=== PATIENT | male | born 1955 | race Caucasian/White ===

== ENCOUNTER 2019-07-09 03:14 | Inpatient (IN) | payer OTHER ==
[~2019-07-09] VITALS: Ht 167.6 cm; Wt 81.7 kg
[2019-07-09] MEDS ORDERED: FURO20 (03:41)
[2019-07-09] MEDS ORDERED: GABA300 (03:41)
[2019-07-09] MEDS ORDERED: Vitamin D2000 UNIT (03:42)
[2019-07-09] MEDS ORDERED: Pravachol40 MG (03:42)
[2019-07-09] MEDS ORDERED: ASPI81CH (03:42)
[2019-07-09] MEDS ORDERED: POTA10T (03:43)
[2019-07-09] MEDS ORDERED: AMLO5 (03:43)
[2019-07-09] MEDS ORDERED: INSDET100 (03:44)
[2019-07-09] MEDS ORDERED: Prinivil10 MG (03:44)
[2019-07-09] MEDS ORDERED: Novolin R100 UNIT/M (03:44)
[2019-07-09 04:10] LABS: BASOPHILS ABSOLUTE AUTO 0.09 K/mm3 (0.00-0.23); BASOPHILS PERCENT AUTO 1 % (0-2); EOSINOPHILS ABSOLUTE AUTO 0.38 K/mm3 (0.00-0.68); EOSINOPHILS PERCENT AUTO 3 % (0-6); Hematocrit 38.6 % (37.0-53.0); Hemoglobin 11.8 g/dL (13.5-17.5); IMMATURE GRAN ABSOLUTE AUTO 0.05 K/mm3 (0.00-0.10); IMMATURE GRAN PERCENT AUTO 0 % (0-1); LYMPHOCYTES ABSOLUTE AUTO 2.08 K/mm3 (0.84-5.20); LYMPHOCYTES PERCENT AUTO 17 % (21-46); MONOCYTES ABSOLUTE AUTO 1.07 K/mm3 (0.16-1.47); MONOCYTES PERCENT AUTO 9 % (4-13); Mean Corpuscular HGB Conc 30.6 g/dL (31.5-36.5); Mean Corpuscular Volume 101 fL (80-100); Mean Platelet Volume 10.4 fL (9.1-12.4); NEUTROPHILS ABSOLUTE AUTO 8.34 K/mm3 (1.96-9.15); NEUTROPHILS PERCENT AUTO 70 % (41-73); Platelet Count 336 K/mm3 (150-400); RDW Coefficient Variation 13.2 % (11.7-14.2); RDW Standard Deviation 49.9 fL (35.1-46.3); Red Blood Cell Count 3.81 M/mm3 (4.30-5.90); White Blood Cell Count 12.01 K/mm3 (4.00-11.30)
[2019-07-09 04:25] LABS: Alanine Aminotransfer (ALT/SGP 45 U/L (12-78); Albumin, Blood 2.7 g/dL (3.4-5.0); Albumin/Globulin Ratio 0.7 (0.8-1.8); Alk Phos 120 U/L (50-136); Anion Gap 5 mmol/L (6-16); Aspartate Aminotrans (AST/SGOT 46 U/L (12-37); Bilirubin, Total 0.2 mg/dL (0.1-1.0); Blood Urea Nitrogen 17 mg/dL (8-24); CO2, Blood 30 mmol/L (21-32); Calcium, Blood 8.3 mg/dL (8.5-10.1); Chloride, Blood 106 mmol/L (98-108); Creatinine, Blood 1.06 mg/dL (0.60-1.20); Globulin, Blood 3.7 g/dL (2.2-4.0); Glomerular Filtration Rate >60 (60-); Glucose, Blood 273 mg/dL (70-99); Potassium, Blood 4.6 mmol/L (3.5-5.5); Sodium, Blood 141 mmol/L (136-145); Total Protein, Blood 6.4 g/dL (6.4-8.2); Troponin I 0.066 ng/mL (0.000-0.040)
[2019-07-09 06:25] LABS: Percent Saturation 26.2 % (20.0-50.0)
== END 2019-07-09 08:53 | disposition left against medical advice (07) | DRG 189 ==
LOC: ER 03:14 → ERHOLD 05:51
PROVIDERS: Emergency Medicine; ADMIT Internal Medicine
DX: J96.01 Acute respiratory failure with hypoxia (principal); J44.1 Chronic obstructive pulmonary disease with (acute) exacerbation; I10 Essential (primary) hypertension; E11.9 Type 2 diabetes mellitus without complications; D64.9 Anemia, unspecified; Z66 Do not resuscitate; Z87.891 Personal history of nicotine dependence
CPT/HCPCS: 71046; 80053; 82607; 82728; 82746; 82947; 83036; 83540; 83550; 83880; 84443; 84484; 85025; 93005; 93010; 94640; 96374; 96375; 99285-25; J0456; J1650; J2920; J7050

== ENCOUNTER 2020-02-02 14:24 | Emergency (ER) | payer OTHER ==
[~2020-02-02] VITALS: Ht 167.6 cm; Wt 72.6 kg
[~2020-02-02 14:24] MED LIST: AMLO5; ASPI81CH; FURO20; GABA300; INSDET100; Novolin R100 UNIT/M; POTA10T; Pravachol40 MG; Prinivil10 MG; Vitamin D2000 UNIT
[2020-02-02 15:53] LABS: BASOPHILS PERCENT AUTO 1 % (0-2); EOSINOPHILS ABSOLUTE AUTO 0.22 K/mm3 (0.00-0.68); EOSINOPHILS PERCENT AUTO 3 % (0-6); Hematocrit 36.6 % (37.0-53.0); Hemoglobin 11.4 g/dL (13.5-17.5); IMMATURE GRAN ABSOLUTE AUTO 0.03 K/mm3 (0.00-0.10); IMMATURE GRAN PERCENT AUTO 0 % (0-1); LYMPHOCYTES ABSOLUTE AUTO 2.16 K/mm3 (0.84-5.20); LYMPHOCYTES PERCENT AUTO 25 % (21-46); MONOCYTES ABSOLUTE AUTO 0.67 K/mm3 (0.16-1.47); MONOCYTES PERCENT AUTO 8 % (4-13); Mean Corpuscular HGB 31.8 pg (26.0-34.0); Mean Corpuscular HGB Conc 31.1 g/dL (31.5-36.5); Mean Corpuscular Volume 102 fL (80-100); Mean Platelet Volume 9.9 fL (9.1-12.4); NEUTROPHILS ABSOLUTE AUTO 5.62 K/mm3 (1.96-9.15); NEUTROPHILS PERCENT AUTO 64 % (41-73); Platelet Count 373 K/mm3 (150-400); RDW Coefficient Variation 12.8 % (11.7-14.2); RDW Standard Deviation 47.9 fL (35.1-46.3); Red Blood Cell Count 3.59 M/mm3 (4.30-5.90)
[2020-02-02] MEDS ORDERED: METO25 PO (15:57)
[2020-02-02 16:10] LABS: Alanine Aminotransfer (ALT/SGP 35 U/L (12-78); Albumin, Blood 3.2 g/dL (3.4-5.0); Albumin/Globulin Ratio 0.8 (0.8-1.8); Alk Phos 122 U/L (50-136); Anion Gap 3 mmol/L (6-16); Aspartate Aminotrans (AST/SGOT 23 U/L (12-37); Bilirubin, Total 0.2 mg/dL (0.1-1.0); Blood Urea Nitrogen 23 mg/dL (8-24); Bun/Creatinine Ratio 18.4 (12.0-20.0); CO2, Blood 29 mmol/L (21-32); Calcium, Blood 8.6 mg/dL (8.5-10.1); Chloride, Blood 106 mmol/L (98-108); Creatinine, Blood 1.25 mg/dL (0.60-1.20); Globulin, Blood 3.8 g/dL (2.2-4.0); Glomerular Filtration Rate >60 (60-); Glucose, Blood 106 mg/dL (70-99); Potassium, Blood 4.7 mmol/L (3.5-5.5); Sodium, Blood 138 mmol/L (136-145)
== END 2020-02-02 17:18 | disposition home or self-care (01) ==
LOC: ER 14:24
PROVIDERS: Physician Assistant
DX: M84.411A Pathological fracture, right shoulder, initial encounter for fracture (principal); C79.51 Secondary malignant neoplasm of bone; I65.21 Occlusion and stenosis of right carotid artery; J44.9 Chronic obstructive pulmonary disease, unspecified; I10 Essential (primary) hypertension; E11.51 Type 2 diabetes mellitus with diabetic peripheral angiopathy without gangrene; I73.9 Peripheral vascular disease, unspecified; F17.210 Nicotine dependence, cigarettes, uncomplicated; Z79.4 Long term (current) use of insulin; Z79.899 Other long term (current) drug therapy
CPT/HCPCS: 36415; 70491; 76536; 80053; 85025; 93005; 93010; 99284-25; Q9967

== ENCOUNTER 2020-02-26 01:01 | Emergency (ER) | payer OTHER ==
[~2020-02-26] VITALS: Ht 167.6 cm; Wt 74.8 kg
[~2020-02-26 01:01] MED LIST changes: -AMLO5; +AMLO5 PO; -ASPI81CH; +ASPI81CH PO; -FURO20; +FURO20 PO; -GABA300; +GABA300 PO; +METO25 PO; -Pravachol40 MG; +Pravachol40 MG PO; -Prinivil10 MG; +Prinivil10 MG PO; -Vitamin D2000 UNIT; +Vitamin D2000 UNIT PO
[2020-02-26 01:23] LABS: BASOPHILS ABSOLUTE AUTO 0.07 K/mm3 (0.00-0.23); BASOPHILS PERCENT AUTO 1 % (0-2); EOSINOPHILS ABSOLUTE AUTO 0.28 K/mm3 (0.00-0.68); EOSINOPHILS PERCENT AUTO 3 % (0-6); Hematocrit 34.1 % (37.0-53.0); Hemoglobin 10.5 g/dL (13.5-17.5); IMMATURE GRAN ABSOLUTE AUTO 0.04 K/mm3 (0.00-0.10); IMMATURE GRAN PERCENT AUTO 0 % (0-1); LYMPHOCYTES ABSOLUTE AUTO 2.38 K/mm3 (0.84-5.20); LYMPHOCYTES PERCENT AUTO 21 % (21-46); MONOCYTES ABSOLUTE AUTO 0.78 K/mm3 (0.16-1.47); MONOCYTES PERCENT AUTO 7 % (4-13); Mean Corpuscular HGB 31.4 pg (26.0-34.0); Mean Corpuscular HGB Conc 30.8 g/dL (31.5-36.5); Mean Corpuscular Volume 102 fL (80-100); Mean Platelet Volume 9.8 fL (9.1-12.4); NEUTROPHILS ABSOLUTE AUTO 7.65 K/mm3 (1.96-9.15); NEUTROPHILS PERCENT AUTO 68 % (41-73); Platelet Count 310 K/mm3 (150-400); RDW Coefficient Variation 13.2 % (11.7-14.2); RDW Standard Deviation 49.7 fL (35.1-46.3); Red Blood Cell Count 3.34 M/mm3 (4.30-5.90)
[2020-02-26] MEDS ORDERED: Lopressor 25 mg25 MG PO (01:33)
[2020-02-26] MEDS ORDERED: MULTIVITAMINS1 EAC3 PO (01:33)
[2020-02-26 01:41] LABS: Alanine Aminotransfer (ALT/SGP 42 U/L (12-78); Albumin, Blood 2.9 g/dL (3.4-5.0); Albumin/Globulin Ratio 0.8 (0.8-1.8); Alk Phos 113 U/L (50-136); Anion Gap 6 mmol/L (6-16); Aspartate Aminotrans (AST/SGOT 42 U/L (12-37); Bilirubin, Total 0.2 mg/dL (0.1-1.0); Blood Urea Nitrogen 28 mg/dL (8-24); CO2, Blood 26 mmol/L (21-32); Calcium, Blood 8.2 mg/dL (8.5-10.1); Chloride, Blood 111 mmol/L (98-108); Creatinine, Blood 1.27 mg/dL (0.60-1.20); Globulin, Blood 3.5 g/dL (2.2-4.0); Glomerular Filtration Rate >60 (60-); Glucose, Blood 235 mg/dL (70-99); Potassium, Blood 4.1 mmol/L (3.5-5.5); Sodium, Blood 143 mmol/L (136-145); Total Protein, Blood 6.4 g/dL (6.4-8.2); Troponin I 0.024 ng/mL (0.000-0.040)
== END 2020-02-26 04:25 | disposition home or self-care (01) ==
LOC: ER 01:01
PROVIDERS: Emergency Medicine
DX: R06.02 Shortness of breath (principal); J44.9 Chronic obstructive pulmonary disease, unspecified; Z79.82 Long term (current) use of aspirin; Z79.899 Other long term (current) drug therapy; F17.200 Nicotine dependence, unspecified, uncomplicated
CPT/HCPCS: 71046; 80053; 83880; 84484; 85025; 93005; 93010; 96374; 99285-25; J1940

== ENCOUNTER 2020-02-26 12:56 | Day surgery (SDC) | payer OTHER ==
[~2020-02-26 12:56] MED LIST changes: +Lopressor 25 mg25 MG PO; +MULTIVITAMINS1 EAC3 PO
== END 2020-02-26 23:05 | disposition home or self-care (01) ==
LOC: CT 12:56
DX: C41.3 Malignant neoplasm of ribs, sternum and clavicle (principal)
CPT/HCPCS: 20225; 77012

== ENCOUNTER 2020-03-02 04:34 | Inpatient (IN) | payer OTHER ==
[~2020-03-02] VITALS: Ht 167.6 cm; Wt 76.0 kg
[2020-03-02 04:53] LABS: BASOPHILS ABSOLUTE AUTO 0.08 K/mm3 (0.00-0.23); BASOPHILS PERCENT AUTO 1 % (0-2); EOSINOPHILS PERCENT AUTO 3 % (0-6); Hematocrit 34.2 % (37.0-53.0); Hemoglobin 10.4 g/dL (13.5-17.5); IMMATURE GRAN ABSOLUTE AUTO 0.04 K/mm3 (0.00-0.10); IMMATURE GRAN PERCENT AUTO 0 % (0-1); LYMPHOCYTES ABSOLUTE AUTO 1.71 K/mm3 (0.84-5.20); LYMPHOCYTES PERCENT AUTO 18 % (21-46); MONOCYTES ABSOLUTE AUTO 0.71 K/mm3 (0.16-1.47); MONOCYTES PERCENT AUTO 7 % (4-13); Mean Corpuscular HGB 31.4 pg (26.0-34.0); Mean Corpuscular HGB Conc 30.4 g/dL (31.5-36.5); Mean Corpuscular Volume 103 fL (80-100); Mean Platelet Volume 10.4 fL (9.1-12.4); NEUTROPHILS ABSOLUTE AUTO 6.86 K/mm3 (1.96-9.15); NEUTROPHILS PERCENT AUTO 71 % (41-73); Platelet Count 308 K/mm3 (150-400); RDW Coefficient Variation 13.3 % (11.7-14.2); RDW Standard Deviation 50.8 fL (35.1-46.3); Red Blood Cell Count 3.31 M/mm3 (4.30-5.90)
[2020-03-02 05:11] LABS: Troponin I 0.082 ng/mL (0.000-0.040)
[2020-03-02 05:12] LABS: Alanine Aminotransfer (ALT/SGP 72 U/L (12-78); Albumin, Blood 2.8 g/dL (3.4-5.0); Albumin/Globulin Ratio 0.8 (0.8-1.8); Alk Phos 134 U/L (50-136); Anion Gap 7 mmol/L (6-16); Aspartate Aminotrans (AST/SGOT 82 U/L (12-37); Bilirubin, Total 0.2 mg/dL (0.1-1.0); Blood Urea Nitrogen 27 mg/dL (8-24); Bun/Creatinine Ratio 23.3 (12.0-20.0); CO2, Blood 27 mmol/L (21-32); Chloride, Blood 110 mmol/L (98-108); Creatinine, Blood 1.16 mg/dL (0.60-1.20); Globulin, Blood 3.6 g/dL (2.2-4.0); Glomerular Filtration Rate >60 (60-); Glucose, Blood 293 mg/dL (70-99); Potassium, Blood 4.7 mmol/L (3.5-5.5); Sodium, Blood 144 mmol/L (136-145); Total Protein, Blood 6.4 g/dL (6.4-8.2)
--- NOTE | 2020-03-02 06:53 | NUR ---
PT ARRIVED TO UNIT 0637 TRANSFERED SELF TO BED. PT DENIES SOB OR CP. NO WEAKNESS NOTED. CURRENTLY AA0X4, VSS. BP DOWN FROM ER LEVELS. PT CURRENTLY RESTING IN BED. WILL GIVE REPORT TO DAY SHIFT NURSE. PT ORIENTED TO ROOM CALL LIGHT IN REACH.
--- NOTE | 2020-03-02 18:28 | NUR ---
SHIFT SUMMARY PATIENT IS PLEASANT, ALERT ORITENED AND INDEPENDENT IN THE ROOM. PATIENT SAW THE ANCILLARY SERVICES MANAGER THERAPY TODAY AND WILL GET A STRESS TEST TOMORROW UNDER THE ONE DAY PROTOCOL.
--- NOTE | 2020-03-02 19:41 | NUR ---
1929 VITAL SIGNS SHOWED BP OF 181/84 AND TEMP 100.7F. APRESOLINE 10MG PRN GIVEN PER ORDER WITH HS [facility], AND CALL PLACED TO HOSPITALIST TO INFORM AND ASK IF HE WOULD LIKE TO ORDER TYLENOL.
[2020-03-03 05:28] LABS: BASOPHILS ABSOLUTE AUTO 0.04 K/mm3 (0.00-0.23); BASOPHILS PERCENT AUTO 0 % (0-2); EOSINOPHILS PERCENT AUTO 0 % (0-6); Hematocrit 31.6 % (37.0-53.0); Hemoglobin 9.9 g/dL (13.5-17.5); IMMATURE GRAN ABSOLUTE AUTO 0.04 K/mm3 (0.00-0.10); IMMATURE GRAN PERCENT AUTO 0 % (0-1); LYMPHOCYTES ABSOLUTE AUTO 1.54 K/mm3 (0.84-5.20); LYMPHOCYTES PERCENT AUTO 11 % (21-46); MONOCYTES PERCENT AUTO 8 % (4-13); Mean Corpuscular HGB Conc 31.3 g/dL (31.5-36.5); Mean Platelet Volume 10.1 fL (9.1-12.4); NEUTROPHILS ABSOLUTE AUTO 11.58 K/mm3 (1.96-9.15); NEUTROPHILS PERCENT AUTO 81 % (41-73); Platelet Count 298 K/mm3 (150-400); RDW Coefficient Variation 13.2 % (11.7-14.2); RDW Standard Deviation 48.4 fL (35.1-46.3); Red Blood Cell Count 3.19 M/mm3 (4.30-5.90)
[2020-03-03 05:30] LABS: Mean Corpuscular Volume 99 fL (80-100)
[2020-03-03 05:53] LABS: Alanine Aminotransfer (ALT/SGP 46 U/L (12-78); Albumin, Blood 2.6 g/dL (3.4-5.0); Albumin/Globulin Ratio 0.8 (0.8-1.8); Alk Phos 118 U/L (50-136); Anion Gap 6 mmol/L (6-16); Aspartate Aminotrans (AST/SGOT 23 U/L (12-37); Bilirubin, Total 0.3 mg/dL (0.1-1.0); Blood Urea Nitrogen 34 mg/dL (8-24); Bun/Creatinine Ratio 31.8 (12.0-20.0); CO2, Blood 28 mmol/L (21-32); Calcium, Blood 8.4 mg/dL (8.5-10.1); Chloride, Blood 109 mmol/L (98-108); Creatinine, Blood 1.07 mg/dL (0.60-1.20); Globulin, Blood 3.3 g/dL (2.2-4.0); Glomerular Filtration Rate >60 (60-); Glucose, Blood 268 mg/dL (70-99); Potassium, Blood 4.3 mmol/L (3.5-5.5); Sodium, Blood 143 mmol/L (136-145); Total Protein, Blood 5.9 g/dL (6.4-8.2)
--- NOTE | 2020-03-03 07:59 | NUR ---
EXTRACTION MACHINE OPERATOR SUMMARY Patient alert and oriented without any complaints of chest pain or SOB. Patient did have an episode of getting quite anxious about needing a mask to breath around 2400 last night. At that time, patient was seemingly unable to elaborate why or what kind of mask he was needing. Patient was saturating in mid 90's on 1.5 liters NC. Patient then removed his gown, placed on his street clothes and commenced leaving the unit. When he was able to explain his concern, it was his nose was dripping and he couldn't use the cannula. Lung sounds at that time had considerably diminished, and RT recommended we ask for an extra dose of lasix. Order received and given with good result and improved lung sounds. RT explained to patient that he could go without the 02 as his saturations were in the low 90's on room air when he returned to room. Patient still wanted mask, so (empty) med nebulizer mask was given to patient to wear to satisfy patient. white washer informed.
--- NOTE | 2020-03-03 19:36 | NUR ---
S/P ANGIOGRAM PT ARRIVED TO PCU 14 FROM [facility] VIA BED ACCOMPANIED BY MARIXA GARCIA AND MONITORED ON ZOLL. PT AWAKE AND ALERT. BEDSIDE REPORT RECEIVED FROM MARIXA. DURING REPORT RIGHT FA NOTED TO BE SIGNIFICANTLY LARGER THAN LEFT. PT RELATED THAT IT ISN'T NORMALLY THAT LARGE. TR BAND INTACT. NO LOCALIZED HEMATOMA NOTED.NO PAIN OR NEW NUMBNESS/ TINGLING REPORTED BY PT. PT HAS HX OF NUMBNESS TO RIGHT HAND BASELINE. SPO2 TO RIGHT INDEX FINGER 99% RA. CALLED DR PHILIPPE. RECEIVED INSTRUCTIONS. DR PHILIPPE CAME TO BEDSIDE TO EVALUATE PT. PROTAMINE WAS NOT GIVEN AT THAT TIME. DR PHILIPPE REQUESTED THAT IT BE HELD AT BEDSIDE. RIGHT FA MEASURED AND MARKED. CIRCUMFERENCE 7CM. THAT DIMENTION HAS NOT CHANGED. DR PHILIPPE HAS CALLED TO CHECK ON PT SEVERAL TIMES. NO FURTHER CHANGES NOTED. RIGHT FA IS SOFTER AND LESS SWOLLEN. ELEVATED HIS RIGHT FA ON PILLOW AND APPLIED AN ICE PACK PER ORDER. BEDSIDE HAND OFF WITH SEAN GARCIA COMPLETED. CONTINUE POT.
--- NOTE | 2020-03-03 20:00 | NUR ---
SEE CATH SITE MANAGEMENT. REVIEWED W/ DAY RN AND THIS RN STATED RT ARM WAS [address] PHILIPPE HAD BEEN HERE TO SEE ARM AT END OF DAY SHIFT. ORDERS LEFT IF NEED FOR EMERGENT ARM INCREASE OR ISSUE AFTER DR PHILIPPE NOTIFIED OF SUCH. RT ARM ELEVATED ON 2 PILLOWS. FORARM BELOW ELBOW BEND SOFT. MY CIRCUMFRANCE MEASURE AND CONFIRMED W/ CHARGE NURSE = 27 CM. A SLIGHT PUFFINESS BUT SOFT AT SITE WHERE DEPENDENT EDEMA MAY BE EVIDENT = SIDE OF RT ELBOW. NEVER REPORTING ANY PAIN OR DISCOMFORT. PULSE RT RADIAL WNL BELOW TR BAND. REPORTS RT HAND ALWAYS NUMB. AND LT HAND HAS NEVER BEEN NUMB. ALERT AND ORIENTED DENIES ANY SOB OR DISCOMFORT
--- NOTE | 2020-03-03 22:45 | NUR ---
PLACED CALL TO ELLIOT AND NURSE NOTIFY ORDER LEFT. NOTED 15 MIN AGO PT HAD SUDDEN SOB EPISODE AND LUNGED OUT OF BED TO ASSIST IN BREATHING. NOTED AT THIS TIME OF GETTING OUT OF BED WITH THIS PANIC FEELING, BIGEMINY NOTED AND SOME SR W/ PVCS. PLACED ON 3L NC AND PT REPORTS RELIEF OF SOB. 2 HR AGO NOTED ASSESS WZ T/O AND FINE BBC. REPORTS THIS IS NORMAL HE IS A SMOKER TRYING OT QUIT. LOOSE COUGH ALSO. CLEAR MUCUS , SCANT AMT. SITTING IN CHAIR FOR 45 MIN AND VERY COMFORTABLE BREATHING. ELLIOT REQUESTS TO TRY RA AND >93 OK AND TO HOLD OFF ON LASIX IF POSSIBLE EVEN W/ BBC NOTED.
--- NOTE | 2020-03-03 23:45 | NUR ---
PLACED CALL TO ELLIOT REPORTING BP STILL 175/72 POST SCHEDULED MEDS AND PRN HYDRALAZINE. ORDERS LEFT
[2020-03-04 04:30] LABS: Hematocrit 31.2 % (37.0-53.0); Hemoglobin 9.7 g/dL (13.5-17.5); Mean Corpuscular HGB 31.2 pg (26.0-34.0); Mean Corpuscular HGB Conc 31.1 g/dL (31.5-36.5); Mean Corpuscular Volume 100 fL (80-100); Mean Platelet Volume 10.3 fL (9.1-12.4); Platelet Count 324 K/mm3 (150-400); RDW Coefficient Variation 13.7 % (11.7-14.2); RDW Standard Deviation 50.1 fL (35.1-46.3); Red Blood Cell Count 3.11 M/mm3 (4.30-5.90); White Blood Cell Count 12.08 K/mm3 (4.00-11.30)
[2020-03-04 04:41] LABS: Source, Urine Clean Catch
[2020-03-04 04:44] LABS: Appearance, Urine Clear (Clear); Bilirubin, Urine Neg (Neg); Blood, Urine 1+ (Neg); Color, Urine Yellow (P-Yellow); Glucose Qualitative, Urine 1+ (Neg); Ketones, Urine Neg (Neg); Leukocyte Esterase, Urine Neg (Neg); Nitrite, Urine Neg (Neg); Protein, Urine 4+ (Neg); Urobilinogen, Urine NORM (Normal)
[2020-03-04 04:54] LABS: Anion Gap 6 mmol/L (6-16); Blood Urea Nitrogen 33 mg/dL (8-24); Bun/Creatinine Ratio 28.4 (12.0-20.0); CO2, Blood 27 mmol/L (21-32); Calcium, Blood 8.4 mg/dL (8.5-10.1); Chloride, Blood 109 mmol/L (98-108); Creatinine, Blood 1.16 mg/dL (0.60-1.20); Glomerular Filtration Rate >60 (60-); Glucose, Blood 193 mg/dL (70-99); Potassium, Blood 3.9 mmol/L (3.5-5.5); Sodium, Blood 142 mmol/L (136-145)
[2020-03-04 05:03] LABS: Percent Saturation 11.6 % (20.0-50.0)
[2020-03-04 05:19] LABS: Bacteria Not Seen /hpf; Red Blood Cells, Urine Rare /hpf (0-2); Squamous Epithelial Cells Not Seen /hpf (Few); White Blood Cells, Urine Not Seen /hpf (0-5)
--- NOTE | 2020-03-04 06:16 | NUR ---
SHIFT SUMMARY. DOZING AT SHORT INTERVALS ONCE RADIAL SITE OBSERVATION LESSENED. LAST BP 160/60 AT 0330 . AND NO FURTHER VS TAKEN. CONT TO SLEEP. BED ALARM ON AT ALL TIMES. SITE AT RT RADIAL WNL .CIRCUMFRANCE OF RT ARM 25.5 CM ,, DOWN FROM 27 CM. SAME BLE EDEMA. SOFT LUMP AT RT CLAVICULAR AREA NOTED AND UNCHANGE THRU NOC. CONCERN EXPRESSED ABOUT MD NEEDS TO DISCUSS RESULTS OF NECK LUMP BX SO HE CAN MAKE A BETTER DECISION ABOUT OPEN HEART SURGERY. NO WORD [place] BEND FOR COBRA TX THIS AM .EASILY IRRITATED ABOUT POOR VOIDING PRIVACY AND NOT GETTING TO HAVE DOOR AND LILI SHUT. EXPLAINED SAFETY MEASURES., WILL TRY TO KEEP BED ALARM ON WHEM DONE STANDING TO VOID. NOTED DR PHILIPPE HAD DOCUMENTED PT FULL CODE ON COBRA ORDER. DNR HAD BEEN ESTABLISHED, ON THIS ADNISSION PER MD ORDER. PT WOULD LIKE TO REMAIN DNR AND PURPLE BAND ON . SR THE REST OF NOC. AND NO REPORT OF PVCS. LEFT O2 ON AT 1L . ON THIS ADMISSION PER ORDER. AND PT DOES WANT DNR.
--- NOTE | 2020-03-04 06:45 | NUR ---
DR PHILIPPE TALKED W/ PT ABOUT [facility] AND PT WILL TALK W/ PRIMARY OR ONOCOLOGY SPECIALIST ABOUT HIS BX, BEFORE HE MAKES DECISION ABOUT TRANSFER TO [facility]. DR PHILIPPE SAYS HE CAN MAKE HIS DECISION BEFORE ANY FURTHER TRANSFER ARANGEMENTS ARE CARRIED OUT. DR PHILIPPE TELLS STAFF HE CAN BE DNR UNLESS HE IS TRANSFERRED TO [facility].
--- NOTE | 2020-03-04 09:42 | NUR ---
PATIENT STATES HE IS GOING HOME CALLED AND LEFT MESSAGE FOR MD TURNER AT 1042 REGARDING PATIENT CONCERNS AND DISCHARGE REQUEST. 1100 - PAGED MD PEREZ AND SPOKE WITH HIM REGARDING PATIENT WISH TO DISCHARGE. MD PEREZ STATED OKAY TO DISCHARGE FROM HIS STAND POINT WITH FOLLOW UP APPT IN 2 WEEKS AND ASA DAILY. 1130 - DISCUSSED DISCHARGE WITH MD TURNER, MD TURNER STATED SHE WOULD NOT RIGHT DISCHARGE ORDERS UNTIL PALLIATIVE CARE WROTE THEIR RECOMMENDATION. PATIENT SITTING UP IN ROOM IN CHAIR, REFUSING TELE MONITOR. MD TURNER WHO HAD JUST BEEN IN THE ROOM AT 0930 TO UPDATE THAT PATIENT WAS DRESSED, INDEPENDENT IN THE ROOM AND REFUSING TO WEAR HIS TELE MONITOR AND IS AWAITING DISCHARGE PAPER WORK SO THAT HE CAN RESUME HIS CHANTIX TO QUIT SMOKING AND HIS CARDIAC MEDICATIONS 1000 - CALL
--- NOTE | 2020-03-04 12:17 | NUR ---
Clinical Visit: Pt is alert and oriented. He appears agitated and upset with palliative care visit. Reviewed doctor's recommendations for [facility] transfer for heart bypass. Pt is currently declining to be sent as a transfer for swimming pool installer follow up. He states that he doesn't feel good because he has not slept at all. He wants to just go home and "think about it [decision for cardiac bypass]." He is raising his voice and tells me to "please leave." Followed up with charge nurse, Roxana; and bedside nurse. Roxana is calling Dr. Bhatti to ask for discharge orders, per pt's request. POLST in chart is still unsigned. Message left for Dr. Bhatti to sign POLST form. Copy needs to be taken of document and sent to medical records.
--- NOTE | 2020-03-04 12:51 | NUR ---
PATIENT UPDATE PATIENT REPORTS THAT HE FEELS AGITATED REGARDING THE FACT THE THE PROVIDER YUE SENT PALLIATIVE CARE INTO HIS ROOM AFTER HE HAD ALREADY INFORMED HER THAT HE WISHED TO GO HOME, HE ALSO WISHED FOR HIS POLST FORM (DNR) TO BE SIGNED. REMOVED PATIENTS IV PER HIS REQUEST - PATIENT REFUSED CARE, REFUSED VS AND REFUSED MEDICATIONS. PATIENT WISHES TO REST IN HIS ROOM AT THIS TIME UNTIL DISCHARGED WITH MEDICATIONS - HOME.
--- NOTE | 2020-03-04 14:36 | NUR ---
GIA TURNER TO ROOM WITH PATIENT ADVOCATE, RICCI. PATIENT VERBALIZED THAT HE WISHED TO DISCHARGE HOME. MD TURNER STATED SHE WOULD NOT DISCHARGE PATIENT HOME. PATIENT WALKED OUT OF ROOM AND OUT OF BUILDING STATING HE WAS LEAVING.
== END 2020-03-04 13:40 | disposition left against medical advice (07) | DRG 280 ==
LOC: ER 04:34 → MEDS 04:35 → PCU 04:35 → MEDS 04:35 → PCU 03-03 17:14
PROVIDERS: Emergency Medicine; Internal Medicine; ADMIT Internal Medicine
PROC: 4A023N7 Measurement of Cardiac Sampling and Pressure, Left Heart, Percutaneous Approach (ICD-10-PCS; principal; 2020-03-03)
PROC: B2111ZZ Fluoroscopy of Multiple Coronary Arteries using Low Osmolar Contrast (ICD-10-PCS; 2020-03-03)
DX: I11.0 Hypertensive heart disease with heart failure (principal); I50.31 Acute diastolic (congestive) heart failure; I21.A1 Myocardial infarction type 2; J96.01 Acute respiratory failure with hypoxia; I16.9 Hypertensive crisis, unspecified; C90.30 Solitary plasmacytoma not having achieved remission; E11.51 Type 2 diabetes mellitus with diabetic peripheral angiopathy without gangrene; I65.21 Occlusion and stenosis of right carotid artery; E78.00 Pure hypercholesterolemia, unspecified; Z79.82 Long term (current) use of aspirin; F17.210 Nicotine dependence, cigarettes, uncomplicated; J44.9 Chronic obstructive pulmonary disease, unspecified; Z66 Do not resuscitate; I35.0 Nonrheumatic aortic (valve) stenosis; I25.10 Atherosclerotic heart disease of native coronary artery without angina pectoris; D50.9 Iron deficiency anemia, unspecified
CPT/HCPCS: 36415; 71045; 78452; 80048; 80053; 81001; 82728; 82947; 83540; 83550; 83880; 84484; 85025; 85027; 86140; 93005; 93010; 93017; 93306; 93458; 94640; 96372; 96374; 96375; 96376; 99152; 99285-25; A9270-GY; A9500; C1769; C1894; G0378; J0280; J0360; J1644; J1650; J1940; J2250; J2720; J2785; J2930; J3010; J7030; J7040; Q9967

== ENCOUNTER 2020-03-06 14:26 | Emergency (ER) | payer OTHER, MEDICARE ==
[~2020-03-06] VITALS: Ht 167.6 cm; Wt 122.5 kg
[2020-03-06 15:19] LABS: BASOPHILS ABSOLUTE AUTO 0.06 K/mm3 (0.00-0.23); BASOPHILS PERCENT AUTO 1 % (0-2); EOSINOPHILS ABSOLUTE AUTO 0.11 K/mm3 (0.00-0.68); EOSINOPHILS PERCENT AUTO 1 % (0-6); Hematocrit 29.9 % (37.0-53.0); Hemoglobin 9.3 g/dL (13.5-17.5); IMMATURE GRAN ABSOLUTE AUTO 0.03 K/mm3 (0.00-0.10); IMMATURE GRAN PERCENT AUTO 0 % (0-1); LYMPHOCYTES ABSOLUTE AUTO 0.65 K/mm3 (0.84-5.20); LYMPHOCYTES PERCENT AUTO 8 % (21-46); MONOCYTES ABSOLUTE AUTO 0.25 K/mm3 (0.16-1.47); MONOCYTES PERCENT AUTO 3 % (4-13); Mean Corpuscular HGB 31.7 pg (26.0-34.0); Mean Corpuscular HGB Conc 31.1 g/dL (31.5-36.5); Mean Corpuscular Volume 102 fL (80-100); Mean Platelet Volume 10.7 fL (9.1-12.4); NEUTROPHILS ABSOLUTE AUTO 7.61 K/mm3 (1.96-9.15); NEUTROPHILS PERCENT AUTO 87 % (41-73); Platelet Count 310 K/mm3 (150-400); RDW Coefficient Variation 13.2 % (11.7-14.2); RDW Standard Deviation 49.9 fL (35.1-46.3); Red Blood Cell Count 2.93 M/mm3 (4.30-5.90); White Blood Cell Count 8.71 K/mm3 (4.00-11.30)
[2020-03-06 15:43] LABS: Albumin, Blood 2.7 g/dL (3.4-5.0); Albumin/Globulin Ratio 0.8 (0.8-1.8); Bilirubin, Total 0.2 mg/dL (0.1-1.0); Bun/Creatinine Ratio 26.9 (12.0-20.0); Calcium, Blood 7.6 mg/dL (8.5-10.1); Creatinine, Blood 1.56 mg/dL (0.60-1.20); Globulin, Blood 3.6 g/dL (2.2-4.0); Potassium, Blood 5.1 mmol/L (3.5-5.5); Total Protein, Blood 6.3 g/dL (6.4-8.2); Troponin I 0.026 ng/mL (0.000-0.040)
== END 2020-03-06 16:10 | disposition left against medical advice (07) ==
LOC: ER 14:26
PROVIDERS: Emergency Medicine
DX: I25.10 Atherosclerotic heart disease of native coronary artery without angina pectoris (principal); I10 Essential (primary) hypertension; J44.9 Chronic obstructive pulmonary disease, unspecified; E11.51 Type 2 diabetes mellitus with diabetic peripheral angiopathy without gangrene; I73.9 Peripheral vascular disease, unspecified; C90.00 Multiple myeloma not having achieved remission; F17.210 Nicotine dependence, cigarettes, uncomplicated; Z79.82 Long term (current) use of aspirin; Z79.4 Long term (current) use of insulin; Z79.899 Other long term (current) drug therapy
CPT/HCPCS: 36415; 71045; 80053; 84484; 85025; 93005; 93010; 99284-25

== ENCOUNTER 2020-03-07 05:28 | Emergency (ER) | payer OTHER ==
[~2020-03-07] VITALS: Ht 167.6 cm; Wt 79.0 kg
[2020-03-07 05:43] LABS: BASOPHILS ABSOLUTE AUTO 0.02 K/mm3 (0.00-0.23); BASOPHILS PERCENT AUTO 0 % (0-2); EOSINOPHILS PERCENT AUTO 0 % (0-6); Hemoglobin 9.2 g/dL (13.5-17.5); IMMATURE GRAN ABSOLUTE AUTO 0.07 K/mm3 (0.00-0.10); IMMATURE GRAN PERCENT AUTO 1 % (0-1); LYMPHOCYTES ABSOLUTE AUTO 0.85 K/mm3 (0.84-5.20); LYMPHOCYTES PERCENT AUTO 8 % (21-46); MONOCYTES ABSOLUTE AUTO 0.78 K/mm3 (0.16-1.47); MONOCYTES PERCENT AUTO 7 % (4-13); Mean Corpuscular HGB 31.3 pg (26.0-34.0); Mean Corpuscular HGB Conc 30.7 g/dL (31.5-36.5); Mean Corpuscular Volume 102 fL (80-100); Mean Platelet Volume 10.9 fL (9.1-12.4); NEUTROPHILS ABSOLUTE AUTO 9.61 K/mm3 (1.96-9.15); NEUTROPHILS PERCENT AUTO 85 % (41-73); Platelet Count 344 K/mm3 (150-400); RDW Coefficient Variation 13.2 % (11.7-14.2); RDW Standard Deviation 49.2 fL (35.1-46.3); Red Blood Cell Count 2.94 M/mm3 (4.30-5.90); White Blood Cell Count 11.33 K/mm3 (4.00-11.30)
[2020-03-07 06:07] LABS: Albumin, Blood 2.7 g/dL (3.4-5.0); Albumin/Globulin Ratio 0.8 (0.8-1.8); Bilirubin, Total 0.2 mg/dL (0.1-1.0); Bun/Creatinine Ratio 32.5 (12.0-20.0); Calcium, Blood 7.8 mg/dL (8.5-10.1); Creatinine, Blood 1.51 mg/dL (0.60-1.20); Globulin, Blood 3.6 g/dL (2.2-4.0); Potassium, Blood 5.2 mmol/L (3.5-5.5); Total Protein, Blood 6.3 g/dL (6.4-8.2)
[2020-03-07 06:12] LABS: PCO2 Arterial 46.5 mmHg (35-45); PO2 Arterial 105 mmHg (80-100); pH Blood Arterial 7.36 (7.35-7.45)
[2020-03-07 06:21] LABS: Troponin I 4.46 ng/mL (0.000-0.040)
[2020-03-07 09:17] LABS: International Normalized Ratio 0.9; Prothrombin Time Results 9.7 Sec (9.7-11.5)
== END 2020-03-07 14:29 | disposition short-term general hospital (02) ==
LOC: ER 05:28
PROVIDERS: Emergency Medicine
DX: I21.4 Non-ST elevation (NSTEMI) myocardial infarction (principal); I11.0 Hypertensive heart disease with heart failure; I50.9 Heart failure, unspecified; J44.9 Chronic obstructive pulmonary disease, unspecified; F17.210 Nicotine dependence, cigarettes, uncomplicated; Z79.899 Other long term (current) drug therapy; Z79.82 Long term (current) use of aspirin; Z79.4 Long term (current) use of insulin
CPT/HCPCS: 36600; 80053; 82803; 83880; 84484; 85025; 85610; 85730; 93005; 93010; 94640; 96365; 96366; 99285-25; J1644

== ENCOUNTER 2020-06-05 19:46 | Inpatient (IN) | payer OTHER, MEDICARE ==
[~2020-06-05] VITALS: Ht 165.1 cm; Wt 74.8 kg
[~2020-06-05 19:46] MED LIST changes: +AMLO10 PO; +ATOR40TA PO; +Aspir 8181 MG PO; +BACL10 PO; +BASAGLAR K100 UNIT/1 SC; +COMBIVENT RESPIM4 G1 INH; +CRANBERRY250 MG PO; +DOK100 M2 PO; +Doxazosin Mesyla4 MG PO; +EUTHYROX175 MCG PO; +HUMALOG100 UNIT/1 SC; +HUMULIN R100 UNIT/2 SC; +HYDR100 PO; +IRON18 MG PO; +LANTUS SOL100 UNIT/1 SC; +LEVEMIR100 UNIT/1 SC; +LOSA25 PO; +METO50ER PO; +NITR.4SL SL; +OMEP20ER PO; +PROBIOTIC1 EAC8 PO; +Pravastatin Sod80 MG PO; +VITAMIN D32000 UNI2 PO; +VITAMIN K240 MCG PO; +XARELTO15 MG PO; +ZESTRIL40 M1 PO
[2020-06-05 20:56] LABS: Hematocrit 34.4 % (37.0-53.0); Hemoglobin 10.5 g/dL (13.5-17.5); Mean Corpuscular HGB 28.1 pg (26.0-34.0); Mean Corpuscular HGB Conc 30.5 g/dL (31.5-36.5); Mean Corpuscular Volume 92 fL (80-100); Mean Platelet Volume 12.5 fL (9.1-12.4); NRBC ABSOLUTE 0.05 K/mm3 (0.00-0.02); NRBC Auto 0.2 /100 WBC (0.0-0.2); Platelet Count 271 K/mm3 (150-400); RDW Coefficient Variation 14.5 % (11.7-14.2); RDW Standard Deviation 48.4 fL (35.1-46.3); Red Blood Cell Count 3.74 M/mm3 (4.30-5.90); White Blood Cell Count 23.88 K/mm3 (4.00-11.30)
[2020-06-05 21:10] LABS: Alanine Aminotransfer (ALT/SGP 90 U/L (12-78); Albumin, Blood 1.8 g/dL (3.4-5.0); Albumin/Globulin Ratio 0.5 (0.8-1.8); Alk Phos 108 U/L (50-136); Anion Gap 6 mmol/L (6-16); Aspartate Aminotrans (AST/SGOT 56 U/L (12-37); Bilirubin, Total 0.1 mg/dL (0.1-1.0); Blood Urea Nitrogen 63 mg/dL (8-24); Bun/Creatinine Ratio 48.5 (12.0-20.0); CO2, Blood 23 mmol/L (21-32); Calcium, Blood 7.3 mg/dL (8.5-10.1); Chloride, Blood 110 mmol/L (98-108); Globulin, Blood 3.5 g/dL (2.2-4.0); Glomerular Filtration Rate 59 (60-); Glucose, Blood 325 mg/dL (70-99); Potassium, Blood 5.3 mmol/L (3.5-5.5); Sodium, Blood 139 mmol/L (136-145); Total Protein, Blood 5.3 g/dL (6.4-8.2); Troponin I <0.015 ng/mL (0.000-0.040)
[2020-06-05 21:13] LABS: BASOPHILS PERCENT MAN 0 % (0-2); EOSINOPHILS PERCENT MAN 0 % (0-6); LYMPHOCYTES ABSOLUTE MAN 0.71 K/mm3 (0.84-5.20); LYMPHOCYTES PERCENT MAN 3 % (21-46); MONOCYTES ABSOLUTE MAN 1.19 K/mm3 (0.16-1.47); MONOCYTES PERCENT MAN 5 % (4-13); MYELOCYTE ABSOLUTE MAN 0.23 K/mm3 (0.00-0.00); MYELOCYTE PERCENT MAN 1 % (0-0); NEUTROPHILS ABSOLUTE MAN 21.73 K/mm3 (1.96-9.15); SEG NEUTROPHILS PERCENT MAN 91 % (41-73); TOTAL CELLS COUNTED 100
[2020-06-06 02:46] LABS: Source, Urine Voided
[2020-06-06 02:51] LABS: Bilirubin, Urine Neg (Neg); Blood, Urine 1+ (Neg); Glucose Qualitative, Urine 4+ (Neg); Ketones, Urine Neg (Neg); Leukocyte Esterase, Urine Neg (Neg); Nitrite, Urine Neg (Neg); Protein, Urine 3+ (Neg); Specific Gravity, Urine 1.015 (1.003-1.022); Urobilinogen, Urine NORM (Normal)
[2020-06-06 02:55] LABS: Appearance, Urine Clear (Clear); Color, Urine Pale Yellow (P-Yellow)
--- NOTE | 2020-06-06 02:55 | NUR ---
PATIENT IS A NEW ADMIT FROM THE ED. AXOX 3 AND TWO PERSON TRANSFER FROM [facility] TO BED. DROPLET PRECAUTIONS: R/O COVID-19. PATIENT REPORTS DIZZINESS TO STAND WHEN GIVNG A UA FOR LAB. PATIENT REMINDED TO SIT ON SIDE OF BED FOR UA. PATIENT ORIENTED TO ROOM AND CALL LIGHT SYSTEM. DENIES PAIN, SOB, AND N/V.
[2020-06-06 02:58] LABS: Bacteria Not Seen /hpf; Red Blood Cells, Urine 0-2 /hpf (0-2); Squamous Epithelial Cells Not Seen /hpf (Few); White Blood Cells, Urine Not Seen /hpf (0-5)
--- NOTE | 2020-06-06 03:01 | NUR ---
PROVIDER CONSULT ONCOLOGY. CALL TO ANSWERING SERVICE FOR DR GISSEL MEIER (MADAY). SERVICE REPORTS HE WILL BE AVAILABLE 07:30.
--- NOTE | 2020-06-06 03:03 | NUR ---
COVID-19 SWAB COMPLETE AND UA COLLECTED AND WALKED TO LAB. TELEMETRY PLACED AND TECH REPORTS NSR 64.
[2020-06-06 03:07] LABS: U Amphetamine Screen Not Detected; U Barbituate Screen Not Detected; U Benzodiazapine Screen Not Detected; U Buprenorphine Screen Not Detected; U Cannabinoids Screen DETECTED; U Cocaine Screen Not Detected; U Methadone Screen Not Detected; U Methamphetamine Screen Not Detected; U Opiates Screen DETECTED; U Oxycodone Screen Not Detected; U Phencyclidine Screen Not Detected; U Propoxyphene Screen Not Detected
--- NOTE | 2020-06-06 05:21 | NUR ---
SHIFT SUMMARY PATIENT HAD NO ACUTE CHANGES. AXO X 3 AND BEDREST REPORTING DIZZINESS WHEN STANDING. USES URINAL BEDSIDE. COVID-19 SWAB COMPLETE AND WALKED TO LAB WITH UA AND TOX SCREEN COLLECTION. PIV REMAINS INTACT. [employer] REPORTS NSR 65. DR MEIER CONSULT CALLED INTO ANSWERING SERVICE AND REPORTS AVAILABLE 07:30. TUMOR MASS RIGHT CLAVICLE AREA. DROPLET PRECAUTIONS. CALL LIGHT IN REACH. BED IN LOWEST POSITION AND ALARM ACTIVATED. WILL CONTINUE TO MONITOR UNTIL DAY SHIFT NURSE ASSUMES CARE.
[2020-06-06 05:43] LABS: BASOPHILS ABSOLUTE AUTO 0.03 K/mm3 (0.00-0.23); BASOPHILS PERCENT AUTO 0 % (0-2); EOSINOPHILS PERCENT AUTO 0 % (0-6); Hematocrit 36.5 % (37.0-53.0); IMMATURE GRAN ABSOLUTE AUTO 0.24 K/mm3 (0.00-0.10); IMMATURE GRAN PERCENT AUTO 1 % (0-1); LYMPHOCYTES PERCENT AUTO 3 % (21-46); MONOCYTES ABSOLUTE AUTO 0.53 K/mm3 (0.16-1.47); MONOCYTES PERCENT AUTO 2 % (4-13); Mean Corpuscular HGB 27.3 pg (26.0-34.0); Mean Corpuscular HGB Conc 30.1 g/dL (31.5-36.5); Mean Corpuscular Volume 91 fL (80-100); Mean Platelet Volume 12.7 fL (9.1-12.4); NEUTROPHILS ABSOLUTE AUTO 23.47 K/mm3 (1.96-9.15); NEUTROPHILS PERCENT AUTO 94 % (41-73); NRBC ABSOLUTE 0.03 K/mm3 (0.00-0.02); NRBC Auto 0.1 /100 WBC (0.0-0.2); Platelet Count 261 K/mm3 (150-400); RDW Coefficient Variation 14.6 % (11.7-14.2); RDW Standard Deviation 49.1 fL (35.1-46.3); Red Blood Cell Count 4.03 M/mm3 (4.30-5.90); White Blood Cell Count 25.07 K/mm3 (4.00-11.30)
[2020-06-06 06:06] LABS: CHOL/HDL RATIO 2.3; Cholesterol 195 mg/dL (50-200); HDL Cholesterol 85 mg/dL (>39); Low Density Lipoprotein Chol 88 mg/dL (0-110); Triglycerides 109 mg/dL (30-160); Very Low Density Lipoprot Chol 21 mg/dL (6-32)
[2020-06-06 06:20] LABS: Bun/Creatinine Ratio 46.6 (12.0-20.0); Calcium, Blood 7.6 mg/dL (8.5-10.1); Creatinine, Blood 1.31 mg/dL (0.60-1.20); Potassium, Blood 5.2 mmol/L (3.5-5.5)
--- NOTE | 2020-06-06 18:22 | NUR ---
PT AOX4 AND COOPERATIVE OF CARE. PT HAS BEEN A STANDBY ASSIST TO USE URINAL AT BEDSIDE PT STATES HE CONTINUES TO FEEL DIZZY WAS TREATED PER EMAR START OF SHIFT. NO DISTRESS NOTED AND DENIES ANY PAIN. CBGs HAVE CONSISTANTLY BEEN IN THE 300s, BUT DR CARROLL ORDERED LONG ACTING INSULIN FOR THE EMAR. WILL CONTINUE TO MONITOR.
--- NOTE | 2020-06-06 20:43 | NUR ---
ASSISTED PT TO RADIOLOGY FOR SCAN PER MD ORDERS. ASSISTED BACK TO BED. CALL LIGHT IN REACH. ISOLATION PRECAUTIONS MAINTAINED
--- NOTE | 2020-06-06 23:10 | NUR ---
PT ARRIVES TO ICU 5 VIA BED FROM MEDICAL FLOOR, PT NOTED PCU STATUS. HE IS ALERT AND ORIENTED ON ARRIVAL, CHIEF JUVENILE PROBATION OFFICER AND FOOT STRENGTH ARE EQUAL AND STRONG BILAT, PT DENIES NUMBNESS/TINGLING, NO ARM DRIFT IS NOTED WITH EYES CLOSED AND ARMS EXTENDED, PT IS ABLE TO RAISE BOTH LOWER EXTREMITIES OFF OF BED EQUALLY, NO SLURRING IS NOTED, SMILE IS EQUAL, PUPILS ARE NITISH. PT DENIES PAIN, DENIES N/V, DENIES CP/PRESSURE, DENIES SOB/DYSPNEA. PT IS SPEAKING IN FULL SENTENCES WITHOUT VISIBLE INCREASED WORK OF BREATHING, SATS 96% ON ROOM AIR, LUNGS ARE CLEAR WITH DIM BASES BILAT. SINUS ON MONITOR WITH 1ST DEGREE AV BLOCK, PRESSURE MAINTAINING, 1+ PITTING EDEMA IS NOTED TO BILAT FEET/ANKLES, PT STATES IS BASELINE, CAP REFILL 3 SECONDS, PEDAL PULSES ARE FAINT. ABD SOFT, NORMOACTIVE BOWEL TONES, NO TENDERNESS WITH PALP.
--- NOTE | 2020-06-07 00:24 | NUR ---
AFTER CT DONE, STOCK SHIPPER ORDERED TRAANSFER TO ICU - PCU STATUS. CTA REVEALED SEVERE STENOSIS OF RIGHT INTERNAL CAROTID ARTERY AT ABOUT 90%, NO NOTED FLOW TO THE INTRA CRANIAL PORTION OF LEFT INTERNAL CAROTID ARTERY. NO NOTED ACUTE DISTRESS ON TRANSFER TO ICU. REPORT GIVEN TO ICU NURSE. PT TRANSFERRED TO ICU 5. CALL LIGHT IN REACH.
--- NOTE | 2020-06-07 06:21 | NUR ---
SHIFT SUMMARY: PATIENT SLEPT MOST OF THE NIGHT. NO C/O PAIN. NEURO CHECKS DONE Q2H; NO ACUTE NEURO DEFICITS NOTED. VSS. SATS MID 90'S; BREATH SOUNDS COARSE WITH RHONCHI AUSCULTATED OVER BILATERAL UPPER LOBES. PATIENT VOIDING ADEQUATE AMOUNTS CLEAR, YELLOW URINE USING URINAL. PATIENT REMAINS ON DROPLET/CONTACT ISOLATION AND CHEMO. PRECAUTIONS.
--- NOTE | 2020-06-07 08:44 | NUR ---
[place] of Care: Patient sleeping, easily roused to verbal stimuli, A/O x4 when awake. Denies pain, discomfort, SOB, or dyspnea, VSS, SpO2-95% on RA. States to have slight dizziness at rest but has no other complaints. Peripheral IV to lt AC patent and intact. Using urinal in bed to void without difficulty. Calm and cooperative with this nurse, but made statements expressing frustration with not receiving enough insulin. This nurse then informed patient that amount of insulin dosing would be addressed with the physician this morning. PT then to room shortly after this RN left room. PT report that patient began to rant about staff "not doing anything", and refused PT eval/treatment. Will have further discussion with patient regarding his concerns. Other than c/o slight dizziness, patient neuro status WNL. Will continue to monitor neuro q2hr.
--- NOTE | 2020-06-07 10:10 | NUR ---
Patient left AMA: See previous (assumption of care note). At approx 0845hr, this RN returned to room to administer morning medications and deliver food breakfast tray. Upon entering the room, patient states "just so you know, I am going home". This nurse then asked the reasoning the patient wants to go home. Patient then stated "you are all idiots, this is the worst rated hospital, and no one will listen to me". This nurse apologized that staff has made him feel that way, and asked for specific concerns/issues he is having, so staff can attempt to solve the issues. Patient then states that we are not caring for his diabetes/blood sugars, (previously states he needs larger doses of insulin). This nurse then reminded patient of plan to address insulin dosing with Dr. Alanis this morning, and offered to immediately call Dr. Alanis to discuss insulin and any other concerns. Patient then stated "it doesn't matter, none of you know what you are doing and I do". Patient also expressed anger r/t diagnosis, stating "you all think the problem is the veins in my neck and its not". This nurse then explained that the physician were considering multiple causes to his symptoms, and that is why Dr. Rivera was consulted, who suspects symptoms are r/t chemo/medications. Patient then stated "I don't like Dr. Rivera either, he is an idiot, I am going home". This RN then notified Onofre RN (charge), nursing supervisor evaporator, and Dr. Alanis. Dr. Alanis then to room shortly after being notified. Patient refused to have further discussion r/t issues, with Dr. Alanis, or Onofre RN, and persisted on going home. Patient then refused to sign AMA form, but risk (, fall with injury, and re-admission), and benefits (none) verbalized to patient. Patient then dressed himself in room, called a cab, and transported self to w/c in room. This RN then transported patient via w/c to [facility], patient then transported self to bench to wait for cab, 0950hr.
[2020-06-08] MEDS ORDERED: ACYCLOVIR400 MG PO (13:56)
[2020-06-08] MEDS ORDERED: Chantix1 MG PO (15:45)
[2020-06-08] MEDS ORDERED: HYDROCODONE-AC1 EAC8 PO (15:47)
[2020-06-08] MEDS ORDERED: DEXA4 PO (15:47)
[2020-06-08] MEDS ORDERED: NOVOLIN R100 UNIT/2 SC (15:48)
== END 2020-06-07 09:57 | disposition left against medical advice (07) | DRG 149 ==
LOC: ER 19:46 → MEDS 19:47 → ICUE 06-06 15:27 → MEDS 06-06 15:28 → ICUE 06-06 23:04
PROVIDERS: Emergency Medicine; ADMIT Family Medicine
DX: R42 Dizziness and giddiness (principal); N17.9 Acute kidney failure, unspecified; C90.30 Solitary plasmacytoma not having achieved remission; I13.0 Hypertensive heart and chronic kidney disease with heart failure and stage 1 through stage 4 chronic kidney disease, or unspecified chronic kidney disease; Z20.828 Contact with and (suspected) exposure to other viral communicable diseases; T38.0X5A Adverse effect of glucocorticoids and synthetic analogues, initial encounter; T45.1X5A Adverse effect of antineoplastic and immunosuppressive drugs, initial encounter; D63.0 Anemia in neoplastic disease; D72.829 Elevated white blood cell count, unspecified; E11.22 Type 2 diabetes mellitus with diabetic chronic kidney disease; N18.9 Chronic kidney disease, unspecified; I50.9 Heart failure, unspecified; E88.09 Other disorders of plasma-protein metabolism, not elsewhere classified; R74.0 Nonspecific elevation of levels of transaminase and lactic acid dehydrogenase [LDH]; I65.23 Occlusion and stenosis of bilateral carotid arteries; J44.9 Chronic obstructive pulmonary disease, unspecified; E11.51 Type 2 diabetes mellitus with diabetic peripheral angiopathy without gangrene; I25.10 Atherosclerotic heart disease of native coronary artery without angina pectoris; Z53.29 Procedure and treatment not carried out because of patient's decision for other reasons; Z95.1 Presence of aortocoronary bypass graft; Z87.891 Personal history of nicotine dependence; Z79.82 Long term (current) use of aspirin; Z79.4 Long term (current) use of insulin; Z79.899 Other long term (current) drug therapy; Z86.73 Personal history of transient ischemic attack (TIA), and cerebral infarction without residual deficits
CPT/HCPCS: 36415; 70450; 70496; 70498; 70551; 71046; 80048; 80053; 80061; 81001; 82947; 83605; 83880; 84484; 85025; 87040; 93005; 93010; 93880; 96372; 96374; 99285-25; A9270-GY; G0378; J1650; J1815; J1940; Q9967; U0002; U0003

== ENCOUNTER 2020-06-08 12:50 | Emergency (ER) | payer OTHER, MEDICARE ==
[~2020-06-08] VITALS: Ht 165.1 cm; Wt 77.1 kg
[2020-06-08 13:15] LABS: Calcium, Ionized (POC) 1.04 mmol/L (1.10-1.46); Chloride (POC) 106 mmol/L (98-108); Creatinine (POC) 2.4 mg/dL (0.8-1.3); Glucose (ISTAT POC) 197 mg/dL (70-99); Hemoglobin (POC) 6.8 g/dL (13.5-17.5); Potassium (POC) 5.4 mmol/L (3.5-5.5); Sodium (POC) 136 mmol/L (135-148); Total CO2 (POC) 20 mmol/L (21-32)
[2020-06-08 13:33] LABS: Source, Urine Catheter
[2020-06-08 13:36] LABS: Base Excess Venous -7.2 mmol/L; Bicarbonate Venous 18.9 mmol/L (24.0-30.0); PCO2 Venous 41.2 mmHg (38-42); PO2 Venous 94.9 mmHg (38-42)
[2020-06-08 13:37] LABS: pH Blood Venous 7.28 (7.34-7.37)
[2020-06-08 13:40] LABS: BASOPHILS ABSOLUTE AUTO 0.04 K/mm3 (0.00-0.23); BASOPHILS PERCENT AUTO 0 % (0-2); EOSINOPHILS PERCENT AUTO 0 % (0-6); Hemoglobin 6.8 g/dL (13.5-17.5); IMMATURE GRAN ABSOLUTE AUTO 0.22 K/mm3 (0.00-0.10); IMMATURE GRAN PERCENT AUTO 1 % (0-1); LYMPHOCYTES PERCENT AUTO 6 % (21-46); MONOCYTES ABSOLUTE AUTO 1.15 K/mm3 (0.16-1.47); MONOCYTES PERCENT AUTO 4 % (4-13); Mean Corpuscular HGB 28.5 pg (26.0-34.0); Mean Corpuscular HGB Conc 30.9 g/dL (31.5-36.5); Mean Corpuscular Volume 92 fL (80-100); NEUTROPHILS ABSOLUTE AUTO 27.95 K/mm3 (1.96-9.15); NEUTROPHILS PERCENT AUTO 90 % (41-73); NRBC ABSOLUTE 0.03 K/mm3 (0.00-0.02); NRBC Auto 0.1 /100 WBC (0.0-0.2); Platelet Count 273 K/mm3 (150-400); Red Blood Cell Count 2.39 M/mm3 (4.30-5.90); White Blood Cell Count 31.06 K/mm3 (4.00-11.30)
[2020-06-08 13:41] LABS: Appearance, Urine Hazy (Clear); Blood, Urine Neg (Neg); Color, Urine Yellow (P-Yellow); Glucose Qualitative, Urine 2+ (Neg); Ketones, Urine Neg (Neg); Leukocyte Esterase, Urine Neg (Neg); Nitrite, Urine Neg (Neg); Protein, Urine 4+ (Neg); Urobilinogen, Urine NORM (Normal)
[2020-06-08 13:46] LABS: Mean Platelet Volume 13.2 fL (9.1-12.4)
[2020-06-08] MEDS ORDERED: ACYCLOVIR400 MG PO (13:56)
[2020-06-08 13:59] LABS: Bilirubin, Urine 1+ (Neg)
[2020-06-08 14:05] LABS: Albumin, Blood 1.5 g/dL (3.4-5.0); Albumin/Globulin Ratio 0.5 (0.8-1.8); Bilirubin, Total 0.1 mg/dL (0.1-1.0); Bun/Creatinine Ratio 49.5 (12.0-20.0); Calcium, Blood 7.1 mg/dL (8.5-10.1); Creatinine, Blood 2.2 mg/dL (0.60-1.20); Globulin, Blood 3.1 g/dL (2.2-4.0); Potassium, Blood 5.5 mmol/L (3.5-5.5); Total Protein, Blood 4.6 g/dL (6.4-8.2)
[2020-06-08 14:11] LABS: Bacteria Few /hpf; Red Blood Cells, Urine 0-2 /hpf (0-2); Squamous Epithelial Cells Rare /hpf (Few); White Blood Cells, Urine 0-2 /hpf (0-5)
[2020-06-08 14:12] LABS: Amorphous Mod (0-Heavy)
[2020-06-08 14:51] LABS: PCO2 Arterial 41.5 mmHg (35-45); PO2 Arterial 101 mmHg (80-100)
[2020-06-08 14:52] LABS: pH Blood Arterial 7.26 (7.35-7.45)
[2020-06-08] MEDS ORDERED: Chantix1 MG PO (15:45)
[2020-06-08] MEDS ORDERED: DEXA4 PO (15:47)
[2020-06-08] MEDS ORDERED: HYDROCODONE-AC1 EAC8 PO (15:47)
[2020-06-08] MEDS ORDERED: NOVOLIN R100 UNIT/2 SC (15:48)
== END 2020-06-08 16:45 | disposition short-term general hospital (02) ==
LOC: ER 12:50
PROVIDERS: Emergency Medicine; Physician Assistant
DX: K92.2 Gastrointestinal hemorrhage, unspecified (principal); E83.51 Hypocalcemia; R06.03 Acute respiratory distress; I25.810 Atherosclerosis of coronary artery bypass graft(s) without angina pectoris; I11.0 Hypertensive heart disease with heart failure; I50.9 Heart failure, unspecified; J44.9 Chronic obstructive pulmonary disease, unspecified; Z86.73 Personal history of transient ischemic attack (TIA), and cerebral infarction without residual deficits; Z79.82 Long term (current) use of aspirin; Z79.4 Long term (current) use of insulin; Z95.1 Presence of aortocoronary bypass graft; Z79.899 Other long term (current) drug therapy; Z20.828 Contact with and (suspected) exposure to other viral communicable diseases
CPT/HCPCS: 31500; 36430; 36600; 71045; 80047; 80053; 81001; 82803; 83605; 83880; 85014; 85025; 86850; 86900; 86901; 86923; 93005; 93010; 94770; 96365-59; 96366-59; 96367-59; 96375; 96376-59; 99285-25; C9113; J0330; J0610; J2405; J2704; J7030; P9016; U0002